=== PATIENT | female | born 1985 | race Caucasian/White ===

== ENCOUNTER 2024-05-03 12:21 | Emergency (ER) | payer OTHER ==
[2024-05-03 13:06] LABS: BASOPHILS PERCENT AUTO 0.5 % (0.0-1.0); EOSINOPHILS ABSOLUTE AUTO 0.1 K/mm3 (0.0-0.4); EOSINOPHILS PERCENT AUTO 1.1 % (0.0-6.0); HEMATOCRIT 39.2 % (37.0-47.0); IMMATURE GRAN ABSOLUTE AUTO 0.01 K/mm3 (0.00-0.05); IMMATURE GRAN PERCENT AUTO 0.2 % (0.0-0.4); LYMPHOCYTES ABSOLUTE AUTO 2.7 K/mm3 (1.0-4.8); LYMPHOCYTES PERCENT AUTO 43.8 % (24.0-44.0); MEAN CORPUSCULAR HEMOGLOBIN 30.5 pg (28.0-32.0); MEAN CORPUSCULAR HGB CONC 33.2 g/dl (32.0-36.0); MEAN PLATELET VOLUME 9.1 fl (9.4-12.3); MONOCYTES ABSOLUTE AUTO 0.4 K/mm3 (0.0-0.8); MONOCYTES PERCENT AUTO 7.1 % (0.0-8.0); NEUTROPHILS PERCENT AUTO 47.3 % (41.0-71.0); PLATELET COUNT,PLT 332 K/mm3 (150-400); RED BLOOD CELL COUNT 4.26 M/mm3 (4.10-5.30); WHITE BLOOD CELL COUNT,WBC 6.23 K/mm3 (3.9-11.3)
[2024-05-03 13:27] LABS: INR 0.98; PROTHROMBIN TIME 10.4 SECONDS (9.7-12.0)
[2024-05-03 13:33] LABS: A/G RATIO 0.8 (1-2); ALBUMIN 3.2 g/dl (3.4-5.0); ANION GAP 14.2 (5-15); BILIRUBIN TOTAL 0.3 mg/dL (0.2-1.0); BUN/CREATININE RATIO 17.5 (14-18); CREATININE 0.8 mg/dL (0.55-1.02); EST CRCL DRUG DOSING (CG) 75.41 mL/min; POTASSIUM,K 3.2 mEq/L (3.5-5.1); PROTEIN TOTAL,TP 7.1 g/dl (6.4-8.2)
[2024-05-03 13:41] LABS: APPEARANCE,URINE CLEAR (Clear); BILIRUBIN,URINE NEGATIVE (Negative); COLOR,URINE YELLOW (Yellow); GLUCOSE,URINE NEGATIVE (Negative); KETONES,URINE NEGATIVE (Negative); LEUKOCYTE ESTERASE,URINE NEGATIVE (Negative); NITRITE,URINE NEGATIVE (Negative); OCCULT BLOOD,URINE NEGATIVE (Negative); PROTEIN,URINE NEGATIVE (Negative); UROBILINOGEN,URINE 0.2 (0.2-1.0)
[2024-05-03] MEDS: Sodium Chloride 0.9% 1,000 ML IV SCH (13:46)
[2024-05-03] MEDS: Iopamidol 755 Mg/ML 100 ML Bottle IVPUSH ONE (13:54)
[2024-05-03] MEDS: Sodium Chloride 0.9% 10 ML Syringe FLUSH PRN (13:54)
[2024-05-03] MEDS: Sodium Chloride 0.9% 100 ML IV SCH (13:55)
== END 2024-05-03 14:57 | disposition home or self-care (01) ==
LOC: JD.ED 12:21
DX: R41.0 Disorientation, unspecified (principal); G45.4 Transient global amnesia; Z79.899 Other long term (current) drug therapy
CPT/HCPCS: 36415; 70450; 70496; 70498; 80053; 81003; 84484; 85025; 85610; 85730; 93005; 96360; 99285; J3490; J7030; Q9967; 93010; 99284